=== PATIENT | female | born 2000 | race African-American/Black ===

== ENCOUNTER 2019-10-10 20:18 | Emergency (ER) | payer OTHER ==
[~2019-10-10] VITALS: Ht 157.5 cm; Wt 49.9 kg
[2019-10-10] MEDS ORDERED: NASAL MIST126 ML (20:56)
[2019-10-10] MEDS ORDERED: CLEOCIN HCL300 MG PO (22:23)
== END 2019-10-10 22:39 | disposition home or self-care (01) ==
LOC: ER 20:18
DX: L03.211 Cellulitis of face (principal); K05.10 Chronic gingivitis, plaque induced

== ENCOUNTER → 2021-02-06 | Outpatient (CLI) | payer OTHER ==
[~2021-02-06] MED LIST: CLEOCIN HCL300 MG PO; NASAL MIST126 ML
== END | disposition home or self-care (01) ==
LOC: PRENATAL 08:00
PROVIDERS: ATTEND Obstetrics & Gynecology Maternal & Fetal Medicine
DX: O35.0XX1 Maternal care for (suspected) central nervous system malformation in fetus, fetus 1 (principal); O35.3XX1 Maternal care for (suspected) damage to fetus from viral disease in mother, fetus 1; O98.512 Other viral diseases complicating pregnancy, second trimester; Z36.89 Encounter for other specified antenatal screening; Z3A.27 27 weeks gestation of pregnancy